=== PATIENT | female | born 1975 | race Two or more races ===

== ENCOUNTER 2024-06-12 21:16 | Emergency (ER) | payer MEDICAID, OTHER ==
[~2024-06-12] VITALS: Ht 160 cm; Wt 100.7 kg
--- NOTE | 2024-06-12 23:39 | ED.PDOC ---
Eye-HPI HPI Comments This is a 49-year-old female presents to the ED chief complaint throat pain. Patient complaining of throat pain x4 days with radiation to bilateral ears she congestion, sore throat and difficulty swallowing. Denies any recent ill contacts denies any recent travel denies difficulty breathing, shortness breath, chest pain, diarrhea, nausea or vomiting. 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 History Family History Family History: Reviewed,noncontributory to illness Social History Smoker: Non-Smoker Alcohol: Denies ETOH Use Drugs: Denies Drug Use Constitutional: reports: fever; denies: chills, diaphoresis, fatigue, malaise, sweats, weakness, others EENTM: reports: ear pain, throat pain; denies: blurred vision, double vision, ear bleeding, ear discharge, ear drainage, ear ringing, eye pain, eye redness, hearing loss, mouth pain, mouth swelling, nasal discharge, nose bleeding, nose congestion, nose pain, photophobia, tearing, throat swelling, voice changes, others Respiratory: reports: cough; denies: hemoptysis, orthopnea, SOB at rest, s hortness of breath, SOB with excertion, stridor, wheezing, others Cardiovascular: denies: chest pain, dizzy spells, diaphoresis, Dyspnea on exertion, edema, irregular heart beat, left arm pain, lightheadedness, palpitations, PND, syncope, others Gastrointestinal: denies: abdomen distended, abdominal pain, blood streaked bowels, constipated, diarrhea, dysphagia, difficulty swallowing, hematemesis, melena, nausea, poor appetite, poor fluid intake, rectal bleeding, rectal pain, vomiting, others Genitourinary: denies: abnormal vagina bleeding, burning, dyspareunia, dysuria, flank pain, frequency, hematuria, incontinence, pain, , vagina discharge, urgency, others Neurological: denies: dizziness, fainting, headache, left sided numbness, left sided weakness, numbness, paresthesia, pre-existing deficit, right sided numbness, right sided weakness, seizure, speech problems, tingling, tremors, weakness, others Musculoskeletal: denies: back pain, gout, joint pain, joint swelling, muscle pain, muscle stiffness, neck pain, others Integumetry: denies: bruises, change in color, change in hair/nails, dryness, laceration, lesions, lumps, rash, wounds, others Allergic/Immunocompromised: denies: Difficulty Healing, Frequent Infections, Hives, Itching, others Hematologic/Lymphatic: denies: anemia, blood clots, easy bleeding, easy bruising, swollen glands, others Endocrine: denies: excessive hunger, excessive sweating, excessive thirst, excessive urination, flushing, intolerance to cold, intolerance to heat, unexplained weight gain, unexplained weight loss, others Psychiatric: denies: anxiety, bipolar disorder, depression, hopeless, panic disorder, schizophrenia, sleepless, suicidal, others Physical Exam General Appearance: No Apparent Distress, Normal HEENT: Pharyngeal Erythema, TMs Normal, Tonsillar Exudate, Other (Tonsils grade 4 moderate amount of exudate bilateral no noted obvious peritonsillar abscess) Neck: Full Range of Motion, Non-Tender, Normal Respiratory: Lungs Clear, No Respiratory Distress, Normal Breath Sounds Cardiovascular: No Edema, No JVD, No Murmur, No Gallop, Normal Peripheral Pulses, Regular Rate/Rhythm Breast Exam: Deferred Gastrointestinal: No Organomegaly, Non Tender, No Pulsatile Mass, Normal Bowel Sounds, Soft Genitalia: Deferred Pelvic: Deferred Rectal: Deferred Extremities: Normal capillary refill, Normal inspection, Normal range of motion, Non-tender, No pedal edema Musculoskeletal : Apperance: Normal Neurologic: Alert, verifying specialist II-XII nml as Tested, No Motor Deficits, Normal Affect, Normal Mood, No Sensory Deficits Cerebellar Function: Normal Reflexes: Normal Skin: Dry, Normal Color, Warm Lymphatic: No Adenopathy Was a procedure done? Was a procedure done?: No EENT DIFF Eye: N/A Ear: Otitis Media, Perforation, Pharyngitis, Sinusitis X-Ray, Labs, Meds, VS Vital Signs Date Time Temp Pulse Resp B/P (MAP) Pulse Ox O2 Delivery O2 Flow Rate FiO2 06/12/24 21:30 98.0 96 18 124/74 (91) 95 X-Ray, Labs, Meds, VS Comment Acute tonsillitis with exudate. Patient given Rocephin 1 g IM and Decadron 10 mg IM reports improvement in pain symptoms requesting discharge at this time. Script Augmentin twice daily times 10 days. Advised to rest increase p.o. fluids with electrolytes consider popsicles avoid hot spicy food salty food follow up with your PCP in 2-3 days as necessary ER return precautions given patient agrees with discharge plan of care. Time of 1ST Reevaluation: 23:53 Reevaluation 1ST: Improved Patient Education/Counseling: Diagnosis, Treatment, Prognosis, Need For Follow Up Family Education/Counseling: No Family Present Departure 1 Departure Time of Disposition: 23:53 Impression: Primary Impression: Acute tonsillitis Qualified Codes: J03.90 - Acute tonsillitis, unspecified Disposition: 01 HOME / SELF CARE / HOMELESS Condition: Stable e-Prescriptions Amoxicillin & Pot Clavulanate (AUGMENTIN TABLET) 875 Mg Tb 875 MG PO BID for 10 Days, #20 TAB Prov: FAZAL CROWLEY 06/12/24 Discharged With: Self Critical Care Note Critical Care Time?: No Stability Stability form required: FAZAL Albert Jun 12, 2024 23:39
[2024-06-12] MEDS ORDERED: AUG875T PO (23:53)
[2024-06-13] MEDS: DexAMETHasone SOD PHOS 10MG/1ML VIAL INJ IM ONE (00:13)
[2024-06-13] MEDS: cefTRIAXone SOD 1,000 MG VL IM ONE (00:14)
[2024-06-13 00:25] VITALS: BP 115/77; PULSE 86; RESP 19; TEMP 98.6; O2SAT 98
== END 2024-06-13 00:39 | disposition home or self-care (01) ==
LOC: ER 21:16
DX: J03.90 Acute tonsillitis, unspecified (principal)
CPT/HCPCS: 96372; 99284; J0696; J1100